=== PATIENT | male | born 1965 | race Caucasian/White ===

== ENCOUNTER → 2023-02-10 | Outpatient (CLI) | payer OTHER ==
--- NOTE | 2023-02-10 15:51 | US ---
EXAMINATION TYPE: US carotid duplex BILAT DATE OF EXAM: 02/10/2023 COMPARISON: NONE CLINICAL HISTORY: [id number]. bruit TECHNIQUE: Carotid duplex ultrasound examination. Indirect Doppler criteria was utilized. FINDINGS: EXAM MEASUREMENTS: RIGHT: Peak Systolic Velocity (PSV) cm/sec ----- Right CCA: 84.2 ----- Right ICA: 75.4 ----- Right ECA: 185.1 ICA/CCA ratio: 0.9 RIGHT: End Diastole cm/sec ----- Right CCA: 30.3 ----- Right ICA: 21.5 ----- Right ECA: 39.0 LEFT: Peak Systolic Velocity (PSV) cm/sec ----- Left CCA: 117.3 ----- Left ICA: 95.3 ----- Left ECA: 104.3 ICA/CCA ratio: 0.8 LEFT: End Diastole cm/sec ----- Left CCA: 33.3 ----- Left ICA: 26.7 ----- Left ECA: 26.7 VERTEBRALS (direction of flow): Right Vertebral: Antegrade Left Vertebral: Antegrade Rhythm: Normal [employer] NOTES: Bilateral intimal thickening. Moderate shadowing plaque at right bulb with plaque extending in the JOSUÉ; does not create a significant stenosis. IMPRESSION: Atherosclerotic plaque with no significant hemodynamic stenosis. Criteria for Assigning % of Stenosis / Diameter reduction (Estimation based on the indirect measurements of the internal carotid artery velocities (ICA PSV). 1. Normal (no stenosis)=ICA PSV < 125 cm/s: ratio < 2.0: ICA EDV<40 cm/s. 2. Less than 50% stenosis=ICA PSV < 125 cm/s: ratio < 2.0: ICA EDV<40 cm/s. 3. 50 to 69% stenosis=ICA PSV of 125 to 230 cm/s: ration 2.0 ? 4.0: ICA EDV 40-100 cm/s. 4. Greater than 70% stenosis to near occlusion= ICA PSV > 230 cm/s: ratio > 4.0: ICA EDV > 100 cm/s. 5. Near occlusion= ICA PSV velocities may be low or undetectable: variable ratio and ICA EDV. 6. Total occlusion=unable to detect flow.
--- NOTE | 2023-02-11 09:05 | CA ---
Transthoracic Echo Report Name: Jag Cruz Age: 57 Gender: M : 1965 Exam Date: 02/10/2023 13:58 Exam Location: [facility] Ht (in): 69 Wt (lb): 150 Ordering Physician: Fabricio Laguna MD Attending/Referring Phys: Luz Elena FERNANDES [employer] Edis Lewis, [facility] Procedure CPT: Indications: R09.89 R01.0 Cardiac Hx: Technical Quality: Fair Contrast 1: Total Dose (mL): Contrast 2: Total Dose (mL): MEASUREMENTS (Male / Female) Normal Values 2D ECHO LV Diastolic Diameter PLAX 4.0 cm 4.2 - 5.9 / 3.9 - 5.3 cm LV Systolic Diameter PLAX 3.4 cm IVS Diastolic Thickness 0.9 cm 0.6 - 1.0 / 0.6 - 0.9 cm LVPW Diastolic Thickness 1.4 cm 0.6 - 1.0 / 0.6 - 0.9 cm LV Relative Wall Thickness 0.6 RV Internal Dim ED PLAX 3.5 cm LA Volume 19.4 cm??? 18 - 58 / 22 - 52 cm??? M-MODE Aortic Root Diameter MM 3.2 cm AV Cusp Separation MM 2.0 cm DOPPLER AV Peak Velocity 109.4 cm/s AV Peak Gradient 4.8 mmHg LVOT Peak Velocity 99.8 cm/s LVOT Peak Gradient 4.0 mmHg MV Area PHT 4.6 cm??? Mitral E Point Velocity 46.7 cm/s Mitral A Point Velocity 65.1 cm/s Mitral E to A Ratio 0.7 MV Deceleration Time 164.0 ms FINDINGS Left Ventricle Small left ventricular cavity. Left ventricular wall thickness normal. Grade 1 diastolic dysfunction. Left ventricular ejection fraction is estimated at 55- 60%. Right Ventricle Normal right ventricular size. Fair right ventricular global systolic function. Right ventricular systolic pressure within normal limits. Right Atrium Normal right atrial size. Left Atrium Normal left atrial size. Mitral Valve Mitral valve thickened. No mitral regurgitation. Aortic Valve Trileaflet aortic valve. No aortic regurgitation. No aortic stenosis. Tricuspid Valve Structurally normal tricuspid valve. Trace tricuspid regurgitation. Pulmonic Valve Pulmonic valve not well visualized. Pericardium No pericardial or pleural effusion. Aorta Normal size aortic root. Proximal ascending aorta is not well visualized. CONCLUSIONS Normal LV size and systolic function. No significant abnormality in the Doppler exam. No pericardial effusion Previewed by: Dr. Braden Palacios MD (Electronically Signed) Final Date: 11 February 2023 09:04
== END | disposition home or self-care (01) ==
LOC: RADECHMAIN 13:47
PROVIDERS: ATTEND Family Medicine
DX: I65.23 Occlusion and stenosis of bilateral carotid arteries (principal); R09.89 Other specified symptoms and signs involving the circulatory and respiratory systems; R01.0 Benign and innocent cardiac murmurs
CPT/HCPCS: 93306; 93880

== ENCOUNTER → 2023-02-21 | Outpatient (CLI) | payer OTHER ==
--- NOTE | 2023-02-21 09:56 | CTL ---
EXAMINATION TYPE: CT Low Dose Lung DATE OF EXAM ORDERED: 02/21/2023 HISTORY: Z87.891. Lung cancer screening CT DLP: 79.[address] CTDI: 1.9 mGy Automated exposure control for dose reduction was used. SCREENING VISIT: First screening visit COMPARISON: None TECHNIQUE: Low dose computed tomography scan was performed through the chest at 1 mm thick sections a nd reconstructed images in multiple planes at 1 mm and [address] DIAGNOSTIC QUALITY: Satisfactory FINDINGS: LUNG NODULES: Spiculated elongated cavitary lesion within the left apex measuring grossly 3.3 x 0.9 c m (series 3, image 52). LUNGS: COPD: Severity: Mild Fibrosis: Severity: None Lymph nodes: None Other findings: None RIGHT PLEURAL SPACE: Effusion: None Calcification: None Thickening: Mild apical thickening. Pneumothorax: None LEFT PLEURAL SPACE: Effusion: None Calcification: None Thickening: Mild apical thickening. Pneumothorax: None HEART: Heart Size: Normal Coronary Calcification: Small Pericardial Effusion: None OTHER FINDINGS: Upper abdomen: Bilateral adrenal gland thickening likely related to adrenal hyperplasia. Bony thorax: None Supraclavicular region: None Other: None IMPRESSION: 1. Spiculated cavitary lesion within the left apex measuring up to 3.3 cm. PET/CT is recommended. 2. Mild COPD changes. CT LUNG RAD AND CT CHEST RECOMMENDATION: Lung-Rad 4B or 4X Very Suspicious: Follow-up Chest CT with o r without contrast or PET/CT and/or tissue sampling. PET/CT may be used when there is a > 8 mm solid component. S Modifier (other clinically significant findings): None
== END | disposition home or self-care (01) ==
LOC: RADCTMAIN 07:00
PROVIDERS: ATTEND Family Medicine
DX: Z12.2 Encounter for screening for malignant neoplasm of respiratory organs (principal); J44.9 Chronic obstructive pulmonary disease, unspecified; F17.210 Nicotine dependence, cigarettes, uncomplicated
CPT/HCPCS: 71271

== ENCOUNTER → 2023-03-25 | Outpatient (CLI) | payer OTHER ==
--- NOTE | 2023-03-26 15:38 | PE ---
EXAMINATION TYPE: PET CT fusion skull to thigh DATE OF EXAM: 03/25/2023 COMPARISON: Low-dose lung screening CT February 21, 2023 HISTORY: Solitary pulmonary nodule, abnormal CT TECHNIQUE: Following the intravenous administration of 11.4 mCi of F-18 FDG, whole body images are p erformed from the skull base to the midthigh. Images are reviewed on the computer in the coronal, ax ial, and sagittal planes. Reconstructed rotating images are created on independent workstation and r eviewed on the computer. A localization and attenuation correction CT is performed in conjunction w ith the PET scan. Blood glucose level equals 92 SCAN: Initial Scan FINDINGS: SKULL BASE AND NECK: No areas of abnormal hypermetabolic uptake. CHEST, MEDIASTINUM, AND HILAR REGION: Moderate underlying emphysematous change is redemonstrated. Per sistent elongated thick-walled cavitary 3.4 x 1.0 cm lesion in the left upper lobe axial image 59 wit hout significant hypermetabolic uptake favoring postinflammatory etiology. No areas of abnormal hyper metabolic uptake throughout the thorax. ABDOMEN AND PELVIS: Normal excretion. No hypermetabolic adrenal masses. No areas of abnormal hypermet abolic uptake. OSSEOUS STRUCTURES: No areas of abnormal hypermetabolic uptake. OTHER CT: Mild to moderate calcified plaque bilateral carotid bulb level right greater than left is p resent. There is coronary artery calcification and/or stents redemonstrated. Scattered left-sided pelvic phleboliths. Advanced narrowing of both hip joints is seen. IMPRESSION: No abnormal hypermetabolic uptake to suggest malignancy. Postinflammatory etiology is str ongly favored.
== END | disposition home or self-care (01) ==
LOC: RADPETMAIN 12:48
PROVIDERS: ATTEND Family Medicine
DX: R91.1 Solitary pulmonary nodule (principal)
CPT/HCPCS: 78815; A9552

== ENCOUNTER → 2024-04-09 | Outpatient (CLI) | payer OTHER ==
--- NOTE | 2024-04-09 08:01 | CTL ---
EXAMINATION TYPE: CT Low Dose Lung DATE OF EXAM ORDERED: 04/09/2024 HISTORY: 58-year-old male Z12.2,F17.210 NICOTINE DEPENDENCE, CIGARETTES, [facility]. Lung cancer screening. Current smoker with 60 pack-year history. CT DLP: 74.[address] CTDI: 1.8 mGy Automated exposure control for dose reduction was used. SCREENING VISIT: Annual follow-up COMPARISON: 02/21/2023 TECHNIQUE: Low dose computed tomography scan was performed through the chest at 1 mm thick sections a nd reconstructed images in multiple planes at 1 mm and [address] DIAGNOSTIC QUALITY: Satisfactory FINDINGS: Heart normal size without pericardial effusion. Borderline ectatic ascending aorta 3.6 cm with conventional arch vessel branching anatomy. No thoracic lymphadenopathy by CT size criteria. Moderate centrilobular emphysema. Mild to moderate diffuse bronchial wall thickening. The focal irregular and elongated soft tissue thickening left upper lobe measuring up to 2.8 x 1.1 cm remains unchanged. Biapical pleural-parenchymal scarring. No consolidation or pleural effusion. Visualized upper abdomen shows low density thickening right adrenal gland and similar 3.4 x 1.9 cm lo w-density nodularity in the left suggesting lipid rich adrenal adenoma. Bones: No osseous destructive process. IMPRESSION: 1. LungRADS 2, benign; irregular 2.8 x 1.1 cm soft tissue thickening left upper lobe suggesting scar. Attention on annual follow-up screening. 2. COPD with moderate emphysema. Recommend smoking cessation. 3. Benign, lipid rich adrenal adenomas measuring up to 3.4 cm, unchanged CT LUNG RAD AND CT CHEST RECOMMENDATION: Lung-Rad 2 Benign Appearance or Behavior: Continue annual sc reening with LDCT in 12 months. S Modifier (other clinically significant findings): None
== END | disposition home or self-care (01) ==
LOC: RADCTMAIN 06:06
PROVIDERS: ATTEND Internal Medicine
DX: Z12.2 Encounter for screening for malignant neoplasm of respiratory organs (principal); J44.9 Chronic obstructive pulmonary disease, unspecified; J43.2 Centrilobular emphysema; D35.02 Benign neoplasm of left adrenal gland; D35.01 Benign neoplasm of right adrenal gland; F17.210 Nicotine dependence, cigarettes, uncomplicated
CPT/HCPCS: 71271

== ENCOUNTER → 2024-09-06 | Outpatient (CLI) | payer OTHER ==
--- NOTE | 2024-09-08 23:41 | EEG ---
ELECTROENCEPHALOGRAM REPORT PREAMBLE: This is a 59-year-old male, with syncopal spell. EEG FINDINGS: This is a 21-channel digital EEG recorded with video component, utilizing 10/20 international system with referential and bipolar montages. Background consists of well developed, well regulated moderate voltage activity in 9 to 10 Hertz alpha. Background is posterior dominant and reactive to eye opening and closing. Background seems to be reactive to some flash frequencies. Hyperventilation was not done. Mild drowsiness was seen with appearance of bilaterally symmetric theta frequency rhythm with some vertex waves. Deeper stages of sleep were not seen. No focal or generalized epileptiform activity was seen. IMPRESSION: This is a normal, awake, and drowsy EEG. No focal, lateralized, or epileptiform activity was seen. MMINDUL / ESSENCEN: [id number] /
== END ==
LOC: NEUROMAIN 07:57
PROVIDERS: ATTEND Family Medicine
DX: R55 Syncope and collapse (principal); F31.9 Bipolar disorder, unspecified
CPT/HCPCS: 95816

== ENCOUNTER → 2025-01-01 | Outpatient (CLI) | payer OTHER ==
--- NOTE | 2025-01-02 23:21 | CT ---
EXAMINATION TYPE: CT chest w con DATE OF EXAM: 01/01/2025 12:07 PM COMPARISON: None. CLINICAL INDICATION: Male, 59 years old with history of R91.8 previous abnormal fingings, nodules TECHNIQUE: Axial images were obtained at 5 mm thick sections. Reconstructed images are reviewed on [employer] computer in the coronal plane. Contrast used:100 mL of Isovue 300 with IV Contrast, (none if empty) Oral contrast used: (none if empty) CT DLP: 212.3 mGycm, Automated exposure control for dose reduction was used. FINDINGS: Portion of the thyroid visualized is normal. Emphysematous changes are present. There may be some scarring in the lung apices. Underlying nodules are not excluded. This included 0.9 cm density in the anterior left upper lobe, series 4 image 12 rosaline pical scarring and thickening is likely present. This is compared to 04/09/2024 low-dose CT chest clinton rison. Lung apical thickening is stable. The density at the left apex previous measured 1.0 cm which is within measurement error. No interval growth is evident. No enlarged mediastinal or hilar adenopathy is evident. The ascending aorta diameter at the level o f the main pulmonary artery is 3.4 cm. The main pulmonary artery diameter at the bifurcation is 2.[address] sections are obtained through the upper abdomen. There is thickening of the left adrenal g land measuring 2.1 cm. IMPRESSION: 1. Probably benign findings. No interval growth in the left apical nodule. Recommend low-dose CT ches t follow-up in 6 months. 2. Emphysematous changes. 3. Stable thickening of the left adrenal gland, present previously [facility], , 01/02/2025 11:18 PM
== END | disposition home or self-care (01) ==
LOC: RADCTMAIN 11:14
PROVIDERS: ATTEND Internal Medicine
DX: J43.9 Emphysema, unspecified (principal); R91.8 Other nonspecific abnormal finding of lung field; E27.8 Other specified disorders of adrenal gland
CPT/HCPCS: 71260; Q9967